=== PATIENT | male | born 1945 | race Caucasian/White ===

== ENCOUNTER → 2022-06-01 11:07 | Outpatient (CLI) | payer MEDICARE, OTHER, SELFPAY ==
--- NOTE | 2022-06-01 | DI.US.S_ITS ---
PROCEDURE: US PERIPH VENOUS LOW EXTREM RT INDICATIONS: LOCALIZED EDEMA TECHNIQUE: Real-time imaging, as well as color and pulse Doppler interrogation, were performed of the lower extremity deep veins from the inguinal ligament to the popliteal fossa. COMPARISON: None. FINDINGS: The common femoral, femoral and popliteal veins are normally compressible, and free of intraluminal thrombus. Color and pulse Doppler demonstrate normal phasic intraluminal flow. There is normal augmentation response to distal compression maneuver. Examination of the superficial venous system shows intraluminal filling defects within great saphenous vein just above the level of right knee joint extending to right calf. IMPRESSION: 1. No evidence of deep venous thrombosis in visualized right lower extremity veins. 2. Superficial venous thrombosis involving right great saphenous vein as above. Dictated by: Timmy Raza M.D. on 06/01/2022 at 12:05 Approved by: Timmy Raza M.D. on 06/01/2022 at 12:06
== END ==
PROVIDERS: Referring Provider Internal Medicine Hematology & Oncology; Visit Provider Internal Medicine Hematology & Oncology
DX: C34.31 Malignant neoplasm of lower lobe, right bronchus or lung (principal); C79.31 Secondary malignant neoplasm of brain; I82.811 Embolism and thrombosis of superficial veins of right lower extremity; R60.0 Localized edema
CPT/HCPCS: 93971